=== PATIENT | female | born 1970 | race Two or more races ===

== ENCOUNTER 2021-05-08 10:14 | Emergency (ER) | payer MEDICAID, OTHER ==
[~2021-05-08] VITALS: Ht 160 cm; Wt 77.1 kg
[2021-05-08 12:53] VITALS: BP 159/75
== END 2021-05-08 15:45 | disposition home or self-care (01) ==
LOC: ER 10:14
DX: J06.9 Acute upper respiratory infection, unspecified (principal); Z20.822 Contact with and (suspected) exposure to COVID-19
CPT/HCPCS: 36415; 71045; 81025; 84484; 87426